=== PATIENT | male | born 1990 | race Caucasian/White ===

== ENCOUNTER 2016-12-18 17:43 | Emergency (ER) | payer BC ==
[2016-12-18] MEDS ORDERED: EPINEPHrine 1 MG/ML SDV IM ONE (19:19)
[2016-12-18] MEDS ORDERED: diphenhydrAMINE 50 MG/ML SDV IVPUSH ONE (19:19)
[2016-12-18] MEDS ORDERED: Sodium Chloride 0.9% 10 ML Syringe FLUSH PRN (19:19)
[2016-12-18] MEDS ORDERED: methylPREDNISolone Sodium Succinate 125 MG/2 ML SDV IVPUSH ONE (19:22)
[2016-12-18 19:37] VITALS: BP 139/78
--- NOTE | 2016-12-18 20:16 | EDM.PDOC ---
ED HPI GENERAL MEDICAL PROBLEM - General Chief Complaint: Allergic Reaction Stated Complaint: ALLERGIC REACTION Time Seen by Provider: 12/18/16 19:25 Source of Information: Reports: Patient History Limitations: Reports: No Limitations - History of Present Illness INITIAL COMMENTS - FREE TEXT/NARRATIVE: This young man said he went to a wedding and somehow was bitten by [place] beetles on his left hand. He noticed that his eyes began to swell and itch. He came right to the emergency room. He denies any difficulty swallowing or shortness of breath. No previous allergic reactions like this. - Related Data Allergies Allergy/AdvReac Type Severity Reaction Status Date / Time No Known Allergies Allergy Verified 12/18/16 18:59 Past Medical History - Past Health History Medical/Surgical History: Denies Medical/Surgical History Social & Family History - Family History Family Medical History: Noncontributory - Tobacco Use Smoking Status *Q: Never Smoker - Caffeine Use Caffeine Use: Reports: Soda Other Caffeine Use: 2-3 a day - Recreational Drug Use Recreational Drug Use: No ED ROS ALLERGIC REACTION - Review of Systems Review Of Systems: See Below HEENT: Denies: Throat Swelling Respiratory: Denies: Shortness of Breath Cardiovascular: Reports: No Symptoms Endocrine: Reports: No Symptoms GI/Abdominal: Reports: No Symptoms ED EXAM GENERAL NO PERIP PULSE - Physical Exam Exam: See Below Exam Limited By: No Limitations General Appearance: Alert, WD/WN, Mild Distress Eye Exam: Right Eye: Other (Very slight chemosis and conjunctival edema of both eyes. Both corneas are normal also slight swelling of the) Ears: Normal External Exam Nose: Normal Inspection Throat/Mouth: Normal Oropharynx (No evidence of any kind of mucosal edema) Head: Atraumatic Neck: Normal Inspection Respiratory/Chest: Lungs Clear Cardiovascular: Regular Rate, Rhythm Course - Vital Signs Last Recorded V/S: Last Vital Signs Temp 37.0 C 12/18/16 19:35 Pulse 104 H 12/18/16 19:35 Resp 12 12/18/16 19:35 BP 139/78 12/18/16 19:35 Pulse Ox 98 12/18/16 19:35 - Orders/Labs/Meds Orders: Active Orders 24 hr Category Date Time Status Sodium Chloride 0.9% [Saline Flush] Med 12/18/16 19:19 Active 10 ml FLUSH ASDIRECTED PRN Saline Lock Insert [OM.PC] Urgent Oth 12/18/16 19:18 Ordered Medication Orders Sodium Chloride (Saline Flush) 10 ml FLUSH ASDIRECTED PRN PRN Reason: Keep Vein Open Last Admin: 12/18/16 19:32 Dose: 10 ml Meds: Medications Generic Name Dose Route Start Last Admin Trade Name Manjula PRN Reason Stop Dose Admin Sodium Chloride 10 ml 12/18/16 19:19 12/18/16 19:32 Saline Flush FLUSH 10 ml ASDIRECTED PRN Administration Keep Vein Open Discontinued Medications Generic Name Dose Route Start Last Admin Trade Name Freq PRN Reason Stop Dose Admin Diphenhydramine HCl 50 mg 12/18/16 19:19 12/18/16 19:26 Benadryl IVPUSH 12/18/16 19:20 50 mg ONETIME ONE Administration Epinephrine HCl 0.3 mg 12/18/16 19:19 12/18/16 19:25 Adrenalin 1:1000 IM 12/18/16 19:20 0.3 mg ONETIME ONE Administration Methylprednisolone Sodium Succinate 125 mg 12/18/16 19:22 12/18/16 19:26 Solu-Medrol IVPUSH 12/18/16 19:23 125 mg ONETIME ONE Administration - Re-Assessments/Exams Free Text/Narrative Re-Assessment/Exam: 12/18/16 20:13 An IV had been established. The patient was given Benadryl 50 mg plus Solu- Medrol 125 mg IV as well as epinephrine 0.3 mg IM He was rechecked after an hour or so and much of the edema of the conjunctiva and upper eyelids has resolved. He feels ready to go home Departure - Departure Time of Disposition: 20:14 Disposition: Home, Self-Care 01 Condition: Fair Clinical Impression: Acute allergic reaction, Chemosis of conjunctiva subconjunctival edema - Discharge Information Referrals: PCP,None [Primary Care Provider] - Additional Instructions: Take Benadryl 50 mg 4 times a day for the next one or 2 days. This can cause sedation and impair driving so use with caution. Take the prednisone as directed the dose will be 40 mg daily for no more than 2 or 3 days. You should be back to normal within a day or so. If you have any worsening of symptoms then see your Dr. or return to the ER - My Orders Last 24 Hours: My Active Orders 12/18/16 19:18 Saline Lock Insert [OM.PC] Urgent 12/18/16 19:19 Sodium Chloride 0.9% [Saline Flush] 10 ml FLUSH ASDIRECTED PRN - Assessment/Plan Last 24 Hours: My Active Orders 12/18/16 19:18 Saline Lock Insert [OM.PC] Urgent 12/18/16 19:19 Sodium Chloride 0.9% [Saline Flush] 10 ml FLUSH ASDIRECTED PRN
== END 2016-12-18 20:25 | disposition home or self-care (01) ==
LOC: JP.ED 17:43
DX: T78.40XA Allergy, unspecified, initial encounter (principal); H11.423 Conjunctival edema, bilateral
CPT/HCPCS: 96372; 96374; 96375; 99283; J0171; J1200; J2930; J7050